=== PATIENT | female | born 1980 | race Hispanic/Latino ===

== ENCOUNTER 2018-05-05 06:18 | Observation (INO) | payer BC ==
[2018-05-04 17:38] VITALS: BP 110/57
[2018-05-04 17:40] LABS: BASOPHILS % (AUTO) 0.4 % (0.0-5.0); HEMATOCRIT 38.7 % (36-48); LYMPHOCYTES % (AUTO) 21.8 % (21.0-51.0); MEAN CORPUSCULAR HEMOGLOBIN 30.4 pg (27.0-33.0); MEAN CORPUSCULAR HGB CONC 34.3 g/dL (32.0-36.0); MEAN CORPUSCULAR VOLUME 88.6 fL (79-99); MONOCYTES % (AUTO) 5.7 % (3.0-13.0); NEUTROPHILS % (AUTO) 67.1 % (40.0-77.0); PLATELET COUNT (AUTO) 263 K/uL (130-400); RED BLOOD CELL COUNT(AUTO) 4.36 MIL/uL (4.00-5.50); RED CELL DISTRIBUTION WIDTH 13.1 % (11.0-15.5); WHITE BLOOD COUNT (AUTO) 9.7 K/uL (4.8-10.8)
[~2018-05-05] VITALS: Ht 174 cm; Wt 87.9 kg
[2018-05-05] VITALS (20 sets, daily range): BP systolic 101–136; BP diastolic 55–76
[~2018-05-05 06:18] MED LIST: LEVO100T12 PO
[2018-05-05] MEDS ORDERED: LIDOCAINE HCL 1% 20 ML VIAL ONE (07:07)
[2018-05-05] MEDS ORDERED: LIDOCAINE HCL MDV 0.5% 50ML VIAL IJ ONE (07:07)
[2018-05-05] MEDS ORDERED: BUPIVACAINE/EPI/PF 0.5% 30ML VIAL IJ ONE (07:07)
[2018-05-05] MEDS ORDERED: NEOMY SULF/POLYMYXIN B SULFATE 1 ML AMPUL IR ONE (07:07)
[2018-05-05] MEDS: CEFAZOLIN SODIUM 1 GM VIAL IVP ONE ×2 (07:38→08:40)
[2018-05-05] MEDS ORDERED: LACTATED RINGERS 1000ML 1,000 ML IV SCH (08:00)
[2018-05-05] MEDS ORDERED: SUCCINYLCHOLINE 200MG/10ML SYR ONE (08:04)
[2018-05-05] MEDS ORDERED: ONDANSETRON HCL 4 MG/2 ML VIAL ONE (08:04)
[2018-05-05] MEDS ORDERED: DEXAMETHASONE SOD PHOSPHATE 10MG/ML 1ML VIAL ONE ×2 (08:04→08:32)
[2018-05-05] MEDS ORDERED: LIDOCAINE PF 2% 5ML ABBOJECT ONE ×2 (08:04→08:07)
[2018-05-05] MEDS ORDERED: GLYCOPYRROLATE 1 MG/5 ML SYRINGE ONE (08:05)
[2018-05-05] MEDS ORDERED: MIDAZOLAM HCL 1 MG/ML 2ML VIAL ONE (08:05)
[2018-05-05] MEDS ORDERED: ROCURONIUM 10MG/1ML SYR 10 MG/ML ML ONE (08:05)
[2018-05-05] MEDS ORDERED: PROPOFOL 10 MG/ML 20ML VIAL IV ONE (08:05)
[2018-05-05] MEDS ORDERED: FENTANYL CITRATE PF 50 MCG/1 ML 2ML VIAL ONE (08:05)
[2018-05-05] MEDS ORDERED: NEOSTIGMINE 5MG/5ML SYR IV ONE (08:05)
[2018-05-05] MEDS ORDERED: ONDANSETRON HCL MDV 20ML 2 MG/ML VIAL ONE (08:32)
[2018-05-05] MEDS ORDERED: CEFAZOLIN SODIUM 1 GM VIAL ONE ×2 (08:42→08:43)
[2018-05-05] MEDS ORDERED: KETOROLAC TROMETHAMINE 30MG/ML ONE (11:02)
[2018-05-05] MEDS ORDERED: MEPERIDINE-PF 25 MG/ML SYG ONE (11:26)
[2018-05-05] MEDS ORDERED: PROMETHAZINE HCL 25 MG/ML 1ML AMPULE IM PRN (12:15)
[2018-05-05] MEDS ORDERED: BISACODYL 10 MG SUPP.RECT RC PRN (12:15)
[2018-05-05] MEDS ORDERED: ONDANSETRON HCL 4 MG/2 ML VIAL IVP PRN (12:15)
[2018-05-05] MEDS ORDERED: PROMETHAZINE HCL 25 MG/ML 1ML AMPULE IM ONE (12:25)
[2018-05-05] MEDS ORDERED: MEPERIDINE-PF 75 MG/ML SYG ONE (12:25)
[2018-05-05] MEDS: DEXTROSE 5 %-0.45 % NACL 1,000 ML IV PRN ×2 (13:18→21:51)
[2018-05-05] MEDS: ACETAMINOPHEN-CODEINE 300/30MG TAB PO PRN ×2 (14:36→19:59)
--- NOTE | 2018-05-05 14:36 | NUR ---
ACTIVITY ASSISTED PT UP TO BATHROOM, AMBULATED WELL WITH MINIMAL ASSISTANCE, WAS ABLE TO VOID BUT DID NOT MAKE IT INTO NUNS HAT SO UNABLE TO MEASURE; AMBULATED BACK TO BED, WILL MEDICATE FOR C/O PAIN/DISCOMFORT ACCORDINGLY; POC DISCUSSED, PT AND FAMILY VERBALIZED UNDERSTANDING
[2018-05-05] MEDS: PROMETHAZINE HCL 25 MG/ML 1ML AMPULE IM PRN ×2 (16:44→22:00)
[2018-05-05] MEDS: MEPERIDINE-PF 75 MG/ML SYG IM PRN ×2 (16:44→22:00)
[2018-05-05] MEDS: DOCUSATE SODIUM 100 MG CAP PO PRN (21:50)
[2018-05-05] MEDS: SIMETHICONE 80 MG TAB.CHEW PO PRN (21:50)
[2018-05-06 03:30] VITALS: BP 102/54
[2018-05-06 05:37] LABS: HEMATOCRIT 34.6 % (36-48); MEAN CORPUSCULAR HEMOGLOBIN 29.8 pg (27.0-33.0); MEAN CORPUSCULAR HGB CONC 33.4 g/dL (32.0-36.0); MEAN CORPUSCULAR VOLUME 89.2 fL (79-99); PLATELET COUNT (AUTO) 241 K/uL (130-400); RED BLOOD CELL COUNT(AUTO) 3.88 MIL/uL (4.00-5.50); RED CELL DISTRIBUTION WIDTH 13.2 % (11.0-15.5); WHITE BLOOD COUNT (AUTO) 17.2 K/uL (4.8-10.8)
[2018-05-06] MEDS ORDERED: LEVOTHYROXINE 100 MCG TABLET PO SCH ×2 (06:30→09:00)
[2018-05-06] MEDS: ACETAMINOPHEN-CODEINE 300/30MG TAB PO PRN (06:43)
--- NOTE | 2018-05-06 07:50 | NUR ---
INCISIONS PT HAS 4 INCISIONS TO RUQ OF ABDOMEN: 2 SMALL INCISIONS COVERED WITH A STERI-STRIP EACH AND A BAND-AID EACH; 2 INCISIONS WITH 2 STERI-STRIPS AND A BIGGER BAND-AID ON EACH; ALL DRY AND INTACT; POC DISCUSSED WITH PT, PT VERBALIZED UNDERSTANDING
[2018-05-06 07:53] VITALS: BP 98/50
[2018-05-06] MEDS: SIMETHICONE 80 MG TAB.CHEW PO PRN (08:49)
[2018-05-06] MEDS: DOCUSATE SODIUM 100 MG CAP PO PRN (08:49)
[2018-05-06] MEDS: IBUPROFEN 600 MG TABLET PO PRN ×2 (08:51→14:48)
[2018-05-06 11:20] VITALS: BP 98/51
--- NOTE | 2018-05-06 13:15 | NUR ---
REPORT RECEIVED FROM Verna STEARNS RN AND PATIENT CARE TRANSFERED AT THIS TIME. PATIENT PENDING DISCHARGE FROM DR. BARBOUR. C/O FEELING BOWEL SOUNDS BUT HAS NOT PASSED FLATUS. Addendum: 05/06/18 at 1351 by CARIDAD ALEMAN RN DULCOLAX SUPPOSITORY OFFERED AND WILL THINK ABOUT IT.
--- NOTE | 2018-05-06 14:00 | NUR ---
UP AMBULATING IN HALLWAY AND VERBALIZED PASSING GAS. STATES NOT NEEDING DULCOLAX SUPPOSITORY.
[2018-05-06] MEDS: SIMETHICONE 80 MG TAB.CHEW PO SCH ×2 (14:45→17:49)
--- NOTE | 2018-05-06 16:15 | NUR ---
DR. BARBOUR WAS PAGED AND THEN CALLED AND LEFT MESSAGE ON CELL PHONE RE: DISCHARGE OF PATIENT.
--- NOTE | 2018-05-06 17:15 | NUR ---
PATIENT WAS GIVEN DISCHARGE INSTRUCTIONS AND SCRIPT FOR PAIN MANAGEMENT AT HOME. VERBALIZED UNDERSTANDING INSTRUCTIONS GIVEN.
--- NOTE | 2018-05-06 17:55 | NUR ---
PATIENT WAS TAKEN VIA W/C TO FAMILY VEHICLE IN STABLE CONDITION. PATIENT C/O MILD PAIN BUT DID NOT WANT TYLENOL #3. DID NOT WISH TO STAY LONGER AND DID NOT LIKE THE SIDE EFFECTS T3 HAD ON HER.
== END 2018-05-06 17:55 | disposition home or self-care (01) ==
LOC: DAH 06:18 → WSH 12:30 → DAH 15:32 → WSH 15:32
PROVIDERS: ADMIT Obstetrics & Gynecology; ATTEND Obstetrics & Gynecology
DX: N83.202 Unspecified ovarian cyst, left side (principal); K80.20 Calculus of gallbladder without cholecystitis without obstruction; E78.2 Mixed hyperlipidemia; N93.9 Abnormal uterine and vaginal bleeding, unspecified; D25.9 Leiomyoma of uterus, unspecified; N81.2 Incomplete uterovaginal prolapse; N81.4 Uterovaginal prolapse, unspecified; K46.9 Unspecified abdominal hernia without obstruction or gangrene; Z82.49 Family history of ischemic heart disease and other diseases of the circulatory system; Z80.0 Family history of malignant neoplasm of digestive organs; Z83.3 Family history of diabetes mellitus
CPT/HCPCS: 36415 ×2; 47562; 57250; 58262; 84703; 85025; 85027; 86850; 86900; 86901; 88302; 88304; 88305; 88307; 96372 ×2; A4218; A4351; A4450; A4510; A4600; A4606; A4649; A4930; C1769 ×4; G0378 ×26; J0330; J0690 ×2; J1100 ×2; J1885; J2001 ×2; J2175 ×4; J2250; J2405; J2550 ×3; J2704; J2710; J3010; J3490 ×4; J7030; J7120